=== PATIENT | male | born 1950 | race Caucasian/White ===

== ENCOUNTER → 2023-11-24 08:32 | Outpatient (REF) | payer MEDICARE, SELFPAY | LOC: DHCBC MAIN 08:32 | PROVIDERS: ATTENDING PHYSICIAN Internal Medicine Cardiovascular Disease; FAMILY PHYSICIAN Family Medicine | DX: I35.0 Nonrheumatic aortic (valve) stenosis (principal); I35.1 Nonrheumatic aortic (valve) insufficiency; I07.1 Rheumatic tricuspid insufficiency | CPT/HCPCS: 93306 ==

== ENCOUNTER → 2024-06-19 08:02 | Outpatient (REF) | payer MEDICARE, SELFPAY ==
[2024-06-19 10:07] LABS: ALT (SGPT) 32 U/L (0-50); AST (SGOT) 51 U/L (17-59); Albumin 4.5 g/dl (3.5-5.0); Alkaline Phosphatase 68 U/L (38-126); Blood Urea Nitrogen 23 mg/dl (9-20); Calcium 9.7 mg/dl (8.4-10.2); Carbon Dioxide 26 mmol/L (22-30); Chloride 106 mmol/L (98-107); Glucose 95 mg/dl (70-99); HDL Cholesterol 73 mg/dl; LDL Cholesterol, Calculated 74 mg/dl; Potassium 4.5 mmol/L (3.5-5.1); Sodium 144 mmol/L (135-145); Total Bilirubin 0.6 mg/dl (0.2-1.3); Total Cholesterol 157 mg/dl (50-199); Total Protein 6.9 g/dl (6.3-8.2); Triglyceride 54 mg/dl (10-149); Very Low Density Lipoprotein 10 mg/dl (0-30); eGFR > 60.00
[2024-06-19 10:17] LABS: Vitamin D, 25-OH*** 52.5 ng/mL (30-80)
== END ==
LOC: REG 08:02
PROVIDERS: ATTENDING PHYSICIAN Family Medicine
DX: R73.03 Prediabetes (principal); E78.5 Hyperlipidemia, unspecified; E55.9 Vitamin D deficiency, unspecified
CPT/HCPCS: 36415; 80053; 80061; 82306

== ENCOUNTER → 2024-09-15 07:25 | Outpatient (REF) | payer MEDICARE, SELFPAY ==
[2024-09-15 08:38] LABS: % Basophils 1.1 % (0-2); % Eosinophils 8.4 % (0-6); % Immature Granulocytes 0.2 % (0-0.5); % Lymphocytes 25.7 % (20.5-51.1); % Neutrophils 55.6 % (42.2-75.2); Absolute Basophils 0.1 10^3/uL (0-0.2); Absolute Eosinophils 0.5 10^3/uL (0-0.7); Absolute Lymphocytes 1.4 10^3/uL (1.2-3.4); Absolute Monocytes 0.5 10^3/uL (0.1-0.6); Hematocrit 44.3 % (39.0-52.0); Hemoglobin 14.4 g/dL (13.0-18.0); Mean Corp Hgb Conc. 32.5 g/dL (33.0-37.0); Mean Corpuscular Hgb 30.4 pg (27.0-31.0); Mean Corpuscular Volume 93.5 fL (80.0-94.0); Mean Platelet Volume 10.8 fL (7.4-10.4); Nucleated Red Blood Cells % 0 % (-); Platelet Count 176 10^3/uL (130-400); Red Blood Cell Count 4.74 10^6/uL (4.70-6.10); Red Cell Dist. Width 14.4 % (11.5-14.5); White Blood Cell Count 5.3 10^3/uL (4.8-10.8)
[2024-09-15 09:15] LABS: ALT (SGPT) 30 U/L (0-50); AST (SGOT) 39 U/L (17-59); Albumin 4.8 g/dl (3.5-5.0); Alkaline Phosphatase 53 U/L (38-126); Blood Urea Nitrogen 20 mg/dl (9-20); Calcium 9.9 mg/dl (8.4-10.2); Carbon Dioxide 26 mmol/L (22-30); Chloride 105 mmol/L (98-107); Glucose 100 mg/dl (70-99); HDL Cholesterol 77 mg/dl; LDL Cholesterol, Calculated 69 mg/dl; Potassium 5.2 mmol/L (3.5-5.1); Sodium 144 mmol/L (135-145); Total Bilirubin 0.6 mg/dl (0.2-1.3); Total Cholesterol 158 mg/dl (50-199); Total Protein 7.3 g/dl (6.3-8.2); Triglyceride 60 mg/dl (10-149); Very Low Density Lipoprotein 12 mg/dl (0-30); eGFR > 60.00
[2024-09-15 09:41] LABS: TSH Reflex To Free T4 1.85 uIU/ml (0.47-4.68)
== END ==
LOC: REG 07:25
PROVIDERS: ATTENDING PHYSICIAN Internal Medicine Cardiovascular Disease; FAMILY PHYSICIAN Family Medicine
DX: I35.0 Nonrheumatic aortic (valve) stenosis (principal); E78.5 Hyperlipidemia, unspecified; I10 Essential (primary) hypertension; I07.1 Rheumatic tricuspid insufficiency; I35.1 Nonrheumatic aortic (valve) insufficiency; I47.10 Supraventricular tachycardia, unspecified
CPT/HCPCS: 36415; 80053; 80061; 84443; 85025

== ENCOUNTER → 2024-09-28 08:22 | Outpatient (REF) | payer MEDICARE, SELFPAY | LOC: HWRCS 08:22 | PROVIDERS: ATTENDING PHYSICIAN Internal Medicine Cardiovascular Disease; FAMILY PHYSICIAN Family Medicine | DX: I35.0 Nonrheumatic aortic (valve) stenosis (principal); I35.1 Nonrheumatic aortic (valve) insufficiency; I07.1 Rheumatic tricuspid insufficiency | CPT/HCPCS: 93306 ==

== ENCOUNTER 2024-11-12 06:04 | Day surgery (SDC) | payer MEDICARE, SELFPAY ==
[2024-11-07 12:47] VITALS: BMI 27.3
--- NOTE | 2024-11-07 14:12 | HPS.HSE ---
Family Physician
-
Family Physician: NO INTERVIEW UNKNOWN
Chief Complaint
-
Severe aortic stenosis.
History of Present Illness
The patient is a 74 year old male presenting today for aortic stenosis. He underwent a recent echocardiogram in early September 2024 which revealed his aortic stenosis had progressed from moderate to severe to very clearly severe.
Fortunately, he remains completely asymptomatic despite this diagnosis. At this point, he should be considered for an aortic valve replacement. He is noted to have a 0.3 m/s/year increase in his peak aortic velocity. His mean gradient is also 59
mmHg, a mere 1 mmHg shy of the recommendation for aortic valve replacement. In preparation for an aortic valve replacement, he is advised to proceed with a left and right cardiac catheterization at this time. He denies any current complaints today
such as chest pain, shortness of breath, palpitations, nausea, vomiting, diarrhea, lightheadedness, dizziness, cough, sore throat, or fever.
Medical History
Past Medical History
Past Medical History: Reports Other
Additional Past Medical History:
1. Severe aortic stenosis.
2. Hypertension.
3. Hyperlipidemia.
4. Paroxysmal supraventricular tachycardia.
5. Bilateral carotid artery stenosis, right worse than left.
6. Aortic atherosclerosis.
7. Mild aortic regurgitation.
8. Mild mitral regurgitation.
9. Mild tricuspid regurgitation.
10. Colon polyps.
11. Diverticulosis.
12. Post-polypectomy bleed 2018.
13. GI ulcer with bleed, 1977, likely secondary to H. Pylori.
14. Gout.
15. Herpes simplex virus.
16. Reported MRSA of right knee, approximately 1 year ago, status post treatment.
17. Remote history of infrequent tobacco abuse.
Past Surgical History: Reports Other (Multiple colonoscopies. )
Social History
Tobacco: Former Smoker (He is a former 'social' cigarette smoker who quit tobacco altogether 15-20 years ago. )
Alcohol: Occasional (beer drinking. )
Personal:
Living: Other (He lives in a 2 story home with his . )
Family History
Family History: Not pertinent
Allergies / Home Medications
Allergy/Medication List:
Home medications:
1. Acyclovir 200 mg p.o. three times a day as needed.
2. Allopurinol 300 mg p.o. daily.
3. Aspirin 81 mg p.o. daily.
4. Cholecalciferol 1000 units p.o. every evening.
5. Coleman 3 1 capsule p.o. daily.
6. Rosuvastatin 40 mg p.o. at bedtime.
Allergies: No known allergies.
Review of Systems
-
A 12 point ROS was completed and negative except as noted: Yes
Physical Exam
Vital Signs
Blood pressure 153/80. Heart rate 63. Respirations 18. Pulse ox 100% on room air.
Height 5 feet, 9 inches. Weight 83.8 kg. BMI 27.3.
Physical Exam
General: Well Developed, Well Nourished and No Apparent Distress
HEENT: NormoCephalic, Moist mucous membranes, Atraumatic and PERRLA
Respiratory: Clear
Cardiac: Regular Rhythm and Murmur (2/6, heard best at right upper sternal border. )
GI: Soft, Non Tender and Non Distended
Musculoskeletal: No Edema and Normal Gait & Station
Skin: Warm and Dry
Neuro: AO x 3 and Nonfocal/grossly intact
Laboratory Results
-
DIAGNOSTIC STUDIES as of 11/07/2024: White blood cell count 7.3.Hemoglobin 14.4. Platelet count 173,000. Sodium 139. Potassium 4.7. BUN 18. Creatinine 0.9. Glucose 94. Calcium 10.2. AST 36. ALT 26. Albumin 4.9.
EKG 11/07/2024: Normal sinus rhythm. Left axis deviation. Nonspecific ST abnormality.
Echocardiogram 09/28/2024: Normal left ventricular size and function with no regional wall motion abnormalities. Ejection fraction is 60-65% by visual estimation. Mild concentric left ventricular hypertrophy. Normal right ventricular size and
function. Severe aortic stenosis. Peak/mean gradients across the aortic valve are 82/59mmHg. Using an LVOT diameter of 2.0cm. The aortic valve by the Continuity equation is calculated at 0.9cm2. Mild aortic regurgitation. Mild mitral regurgitation.
Mild tricuspid regurgitation. Estimated pulmonary artery pressure of 33 mmHg, assuming a right atrial pressure of 3 mmHg. Compared to prior from November 24, 2023, aortic stenosis is now severe, previously moderate to severe.
Stress echocardiogram 06/25/2020: Normal treadmill stress echocardiogram at 11 mets. Low risk stress test. Since stress echo April 2017, there is no significant change.
Impression/Plan
-
IMPRESSION/PLAN:
1. Severe aortic stenosis: The patient is in need of a left and right cardiac catheterization with Dr. Eyal Membreno on 11/12/2024. The benefits and risks of the procedure have been explained to the patient. The patient understands these risks and
wishes to proceed. He is aware to continue his baby Aspirin daily, up to and including the morning of his procedure.
[2024-11-12] VITALS (13 sets, daily range): BP systolic 110–165; BP diastolic 59–72; BMI 26.3
[2024-11-12] MEDS: NSS 249 ML IV (07:36)
--- NOTE | 2024-11-12 09:26 | ITS.CL.CATH ---
[employer] Supervisor - Catheterization
Cardiac Catheterization
Procedure Report:
CARDIAC CATHETERIZATION REPORT
Date of Procedure: 11/12/2024
Referring: Eyal Membreno D.O.
Indication: Severe, progressive aortic valve stenosis.
PROCEDURE:
1. Right heart catheterization.
2. Coronary angiography.
A total of 11 minutes of procedural/moderate sedation was utilized. An independent manager of medical was present to assist with and help manage the patient's level of consciousness and physiologic status.
ACCESS:
1. 6 Guyanese right radial artery using a modified Seldinger technique.
2. 5 Guyanese antecubital vein through a previously placed IV.
CATHETERS:
1. 5 Guyanese balloon wedge.
2. 5 Guyanese JR4.
3. 5 Guyanese JL 3.5.
HEMODYNAMIC DATA
Weight (kg): 83.0
AO (s/d/x mmHg): 114/63/88
LV (s/x mmHg): Not obtained.
PCWP (a/v/x mmHg): 1012/7
PA (s/d/x mmHg): 25//15
RV (s/x mmHg): 25/3
RA (a/v/x mmHg): 5/6/
SVC SvO2 (%): 69.3
IVC SvO2 (%): Not obtained.
RA SvO2 (%): Not obtained.
RV SvO2 (%): Not obtained.
PA SvO2 (%): 66.0
SaO2 (%): 92.1
Hbg (g/dL): 14.2
MAHESH
CO (L/min): 4.49
CI (L/min/m2): 2.23
Thermodilution
CO (L/min): Not obtained.
CI (L/min/m2): Not obtained.
TPG (mmHg): 8
PVR (Boyle Units): 1.70
SVR (dynes*seconds*cm^-5): 1514
AVO2 Diff (Volume %): 5.04
AV gradient (x, mmHg): Not obtained.
AV area (cm2): Not obtained.
MV gradient (x, mmHg): Not obtained.
MV area (cm2): Not obtained.
LEFT VENTRICULOGRAPHY: Not performed.
AORTOGRAPHY: Not performed.
CORONARY ANGIOGRAPHY
Dominance: Left.
Left Main: Short, essentially cloacal. There is no coronary artery disease.
LAD: Large size vessel giving rise to 1 significant diagonal. There is a 40% lesion in the mid LAD, immediately after the origin of the diagonal.
Ramus: Congenitally absent.
Circumflex: Large size, dominant vessel giving rise to 2 obtuse marginals. There is no coronary artery disease.
RCA: Small size, nondominant vessel. There is no coronary artery disease.
INTERVENTIONS
None.
Closure Device: Vascular band for the right radial artery, manual pressure for the right antecubital vein.
Radiation dose (mGy): 509.57
DAP (cm2.Gy): 35.1329
Fluoroscopy time (minutes): 3.7
CONCLUSIONS:
1. Left dominant circulation with a cloacal left main coronary artery and a 40% lesion in the mid LAD.
2. Normal filling pressures (PCWP = 7 mmHg at 83.0 kg).
3. Critical aortic valve stenosis by echocardiography.
RECOMMENDATIONS:
1. Expectant management after cardiac catheterization via right radial/antecubital approach.
2. Limited weight bearing on the right wrist for one week.
3. Referral to structural heart team for TAVR/SAVR evaluation.
4. Continue high-dose, high potency statin.
Copy to: Eyal Membreno D.O., Shelton Baugh M.D.
Eyal Membreno, DO, FACC, FACP
--- NOTE | 2024-11-12 13:10 | CONSULT.STRU ---
Addendum entered and electronically signed by EASTON Sandoval 11/12/24 15:28:
Primary Program Management Manager: Eyal Membreno
Original Note:
Consultation
-
Date/Time Consultation Requested: 11/12/2024
Date/Time Consultation Performed: 11/12/2024
Requesting Provider: Eyal Membreno
Performing Provider: EASTON Sandoval
Reason for Consultation: Aortic stenosis/ TAVR evaluation
Patient History
Physicians
Family Physician: Shelton Foster MD
Outpatient Program Management Manager: Previously Bradley Allan, needs new Card.
History of Present Illness
Patient is a very active and healthy appearing male with known history of aortic stenosis. He underwent his cardiac catheterization today as part of the evaluation. His echocardiogram on 09/28/2024 is notable for EF: 60-65%, PG/M/59, TAZ: 0.9,
Mild AI, Mild MR, Mild TR. Cardiac cath today demonstrates Left dominant circulation with a cloacal left main coronary artery and a 40% lesion in the mid LAD. Normal filling pressures (PCWP = 7 mmHg at 83.0 kg). He denies any symptoms of chest pain,
palpitations, VALLE, lightheadedness or fatigue. Denies orthopnea, PND, lower extremity swelling. He does not note any change in his activity level at all.
Reviewed with the patient the pathophysiology of aortic stenosis and the treatment options of TAVR and SAVR. Reviewed the TAVR evaluation process including follow up BMP at end of the week, TAVR CT scan next week, CT surgery consult. Patient is
requesting Dr. Mcleod. Allowed for and answered questions. Provided with copy of the TAVR booklet and contact information. Allowed for and answered questions.
Past Medical History
Past Medical History: Hypercholesterolemia and Valvular Disease (Severe , Mild AI, Mild mR, Mild TR)
Past Surgical History
Past Surgical History: None
Dental History
Regular Dental-Dr. Ciarra Robledo
Family History
Mother: at Age (80yo, CVA)
Father: at Age (55yo, CAD/MT)
Social History
Alcohol: Occasional
Drug: None
Tobacco: Non-Smoker
Personal:
Living: With Spouse
Employment: Retired
Allergies
Allergy/AdvReac Type Severity Reaction Status Date / Time
No Known Allergies Allergy Verified 11/12/24 06:36
Home Medications
�Medication �Instructions �Recorded �Confirmed �Type
allopurinol 300 mg tablet 300 mg PO DAILY 09/06/19 11/12/24 History
cholecalciferol (vitamin D3) 25 2,000 units PO QPM 09/06/19 11/12/24 History
mcg (1,000 unit) tablet
rosuvastatin 40 mg tablet (Crestor) 40 mg PO HS 09/06/19 11/12/24 History
acyclovir 200 mg capsule 200 mg PO TID PRN cold sores 11/05/24 11/05/24 History
aspirin 81 mg capsule 81 mg PO DAILY 11/05/24 11/12/24 History
omega-3 fatty acids 1 cap PO DAILY 11/07/24 11/12/24 History
STS%
STS %: 1.5%
Review of Systems
-
History Source: Patient
General: Reports No Symptoms
HEENT: Reports No Symptoms
Respiratory: Reports No Symptoms; Denies VALLE, Cough or PND
Cardiac: Reports No Symptoms; Denies Chest Pain, Known Vascular Disease or Palpitations
Abdomen/GI: Reports No Symptoms
: Reports No Symptoms
Musculoskeletal: Reports No Symptoms
Skin: Reports No Symptoms
Neurological: Reports No Symptoms
Vascular: Reports No Symptoms
Physical Exam
Vital Signs
Temp 97.4 F 11/12/24 06:44
Temp route: Oral 11/12/24 06:38
Pulse 58 11/12/24 11:35
Resp Rate 18 11/12/24 06:38
Blood pressure 128/70 11/12/24 12:04
Blood pressure extremity used: Left upper arm 11/12/24 12:10
Position: Sitting 11/12/24 12:10
MAP (cuff-Annabella Monitor) 89 11/12/24 12:04
SaO2 99 11/12/24 11:35
Oxygen Mode of Delivery Room air 11/12/24 12:10
Can the patient verbally communicate their pain? Yes 11/12/24 12:10
Actual Weight 83.007 kg 11/12/24 07:02
Body Mass Index (BMI) 26.3 11/12/24 07:02
Labs
11/07/2024
BUN/Creat: 18/0.9
GFR: >60
H/H: 14.4/43.6
WBC: 7.3
Platelets: [id number]
Diagnostic Studies
11/12/2024 Cardiac Catheterization:
HEMODYNAMIC DATA
Weight (kg):83.0
AO (s/d/x mmHg): 114/63/88
LV (s/x mmHg): Not obtained.
PCWP (a/v/x mmHg):
PA (s/d/x mmHg): 17/08/15
RV (s/x mmHg): 15/01
RA (a/v/x mmHg):
SVC SvO2 (%):69.3
IVC SvO2 (%):Not obtained.
RA SvO2 (%):Not obtained.
RV SvO2 (%):Not obtained.
PA SvO2 (%):66.0
SaO2 (%):92.1
Hbg (g/dL):14.2
MAHESH
CO (L/min): 4.49
CI (L/min/m2): 2.23
Thermodilution
CO (L/min):Not obtained.
CI (L/min/m2):Not obtained.
TPG (mmHg): 8
PVR (Boyle Units): 1.70
SVR (dynes*seconds*cm^-5): 1514
AVO2 Diff (Volume %): 5.04
AV gradient (x, mmHg):Not obtained.
AV area (cm2):Not obtained.
MV gradient (x, mmHg):Not obtained.
MV area (cm2):Not obtained.
LEFT VENTRICULOGRAPHY: Not performed.
AORTOGRAPHY:Not performed.
CORONARY ANGIOGRAPHY
Dominance: Left.
Left Main: Short, essentially cloacal. There is no coronary artery disease.
LAD: Large size vessel giving rise to 1 significant diagonal. There is a 40% lesion in the mid LAD, immediately after the origin of the diagonal.
Ramus:Congenitally absent.
Circumflex: Large size, dominant vessel giving rise to 2 obtuse marginals. There is no coronary artery disease.
RCA: Small size, nondominant vessel. There is no coronary artery disease.
INTERVENTIONS
None.
Closure Device: Vascular band for the right radial artery, manual pressure for the right antecubital vein.
Radiation dose (mGy): 509.57
DAP (cm2.Gy): 35.1329
Fluoroscopy time (minutes):3.7
CONCLUSIONS:
1. Left dominant circulation with a cloacal left main coronary artery and a 40% lesion in the mid LAD.
2. Normal filling pressures (PCWP = 7 mmHg at 83.0 kg).
3. Critical aortic valve stenosis by echocardiography.
RECOMMENDATIONS:
1. Expectant management after cardiac catheterization via right radial/antecubital approach.
2. Limited weight bearing on the right wrist for one week.
3. Referral to structural heart team for TAVR/SAVR evaluation.
4. Continue high-dose, high potency statin.
09/28/2024 Echocardiogram:
CONCLUSIONS
Normal LV size and function with no regional wall motion abnormalities.
LVEF is 60-65% by visual estimation.
Mild concentric LVH.
Normal right ventricular size and function.
Severe aortic stenosis.
Mild aortic regurgitation.
Estimated pulmonary artery pressure of 33 mmHg. Assuming a right atrial
pressure of 3 mmHg.
Compared to prior from November 24, 2023, aortic stenosis is now severe,
previously moderate to severe.
Indications:
Nonrheumatic aortic (valve) stenosis
Rhythm: Sinus
Portable Study: No
Technical Quality: Fair
Contrast: None
BP: 128 / 76
PROCEDURE
A complete Transthoracic Echocardiogram was performed utilizing two-dimensional
evaluation with color flow and spectral Doppler analysis.
FINDINGS
Left Ventricle
Normal left ventricular chamber size. Normal left ventricular systolic
function. Normal regional wall motion. Mild concentric left ventricular
hypertrophy. Left ventricular ejection fraction is 60-65%. Diastolic function
indeterminate.
Right Ventricle
Normal right ventricular size and function.
Left Atrium
Indexed LA volume is within normal range (15-34 mL/m2).
Right Atrium
Normal right atrium.
Mitral Valve
Thickened mitral valve leaflets. Mild mitral regurgitation.
Aortic Valve
Trileaflet aortic valve. Calcified aortic valve. Peak/mean gradients across the
aortic valve are 82/59mmHg. Using an LVOT diameter of 2.0cm. The aortic valve
by the Continuity equation is calculated at 0.9cm2. Severe aortic stenosis.
Mild aortic regurgitation.
Tricuspid Valve
Tricuspid valve opens normally. Mild tricuspid regurgitation. Estimated
pulmonary artery pressure of 33 mmHg. Assuming a right atrial pressure of 3
mmHg.
Pulmonic Valve
Pulmonic valve opens normally. Trace pulmonic regurgitation.
Pericardium\\Pleura
Normal pericardium without effusion.
Aorta
The aortic root is of normal size.
Other Finding
The IVC is of normal size and demonstrates normal respiratory variation.
Interatrial septum is intact with no evidence of shunting by color flow
Doppler.
MEASUREMENTS (Male / Female) Normal Values
2D ECHO
LV Diastolic Diameter PLAX 5.0 cm 4.2 - 5.9 / 3.9 - 5.3 cm
LV Systolic Diameter PLAX 3.2 cm
IVS Diastolic Thickness 1.1 cm 0.6 - 1.0 / 0.6 - 0.9 cm
LVPW Diastolic Thickness 1.1 cm 0.6 - 1.0 / 0.6 - 0.9 cm
LV Relative Wall Thickness 0.4
LVOT Diameter 2.0 cm
LV Ejection Fraction MOD BP 62.0 % >= 55 %
LV Stroke Volume MOD BP 75.7 cm3
LV Cardiac Index MOD BP 2690.0 cm3/min
LV Stroke Volume MOD 4C 67.1 cm3
LV Stroke Volume 4C AL 73.2 cm3
LV Stroke Volume MOD 2C 69.2 cm3
LV Stroke Volume 2C AL 71.7 cm3
LA Area 4C View 18.4 cm2 <= 20 cm2
LA Length 4C 5.4 cm
LA Volume 51.6 cm3 18 - 58 / 22 - 52 cm3
LA Volume Index 28.8 cm3/m2 16 - 34 cm3/m2
Aorta at Sinotubular Diameter 2.7 cm
Ascending Aorta Diameter 3.4 cm
Aorta at Sinuses Diameter 2.8 cm
M-MODE
TAPSE 2.2 cm
DOPPLER
AV Peak Velocity 453.0 cm/s
AV Peak Gradient 82.1 mmHg
AV Mean Gradient 59.0 mmHg
AV Velocity Time Integral 102.8 cm
AI Peak Velocity 249.0 cm/s
AI Peak Gradient 24.8 mmHg
AI Pressure Half Time 535.0 ms
LVOT Peak Velocity 113.0 cm/s
LVOT Peak Gradient 5.1 mmHg
LVOT Velocity Time Integral 28.4 cm
LVOT Stroke Volume 89.2 cm3
LVOT Stroke Volume Index 43.4 ml/m2 empty
LVOT Cardiac Index 3170.5 cm3/min\\m2
AV Area Cont Eq vti 0.9 cm2
AV Area Cont Eq pk 0.8 cm2
MV Area PHT 2.1 cm2
Mitral E Point Velocity 99.0 cm/s
Mitral A Point Velocity 70.7 cm/s
Mitral E to A Ratio 1.4
LV E' Lateral Velocity 10.4 cm/s
Mitral E to LV E' Lateral Ratio 9.5
LV E' Septal Velocity 7.6 cm/s
Mitral E to LV E' Septal Ratio 13.0
TR Peak Velocity 270.0 cm/s
TR Peak Gradient 29.2 mmHg
Exam
General: Well Developed, Well Nourished, No Apparent Distress and Comfortable
HEENT: Normocephalic, PERRLA and EOMI
Neck: Trachea Midline; Negative JVD
Respiratory: Clear; Negative Wheezes, Crackles or Rhonchi
Cardiac: S1/S2, Regular Rhythm and Murmur (Grade II/ systolic murmur)
GI: Soft, Non Tender, Non Distended and Normal Bowel Sounds
Rectal: Deferred by Provider
Skin: Warm and Dry
Neuro: AO x 3 and Nonfocal/Grossly Intact
Extremities: Pulses (+2 dp pulses bilaterally); Negative Lower Level Edema
Psych: Calm
Assessment / Plan
-
Procedure Type:�Isolated AVR
Perioperative Outcome Estimate %
Operative Mortality 1.5%
Morbidity & Mortality 8.39%
Stroke 1.52%
Renal Failure 0.912%
Reoperation 4.4%
Prolonged Ventilation 3.51%
Deep Sternal Wound Infection 0.044%
Long Hospital Stay (>14 days) 2.82%
Short Hospital Stay (<6 days)* 56.9%
Assessment:
Severe/Critical Aortic Stenosi
Plan:
Follow up BMP on 11/16/[address] TAVR scan on 11/20/[address] surgery consult with Dr. Mcleod 12/10/2024
Heart Team discussion
Dental clearance - Dr. Robledo (appt 11/13/2024)
Continue Aspirin 81mg daily
Data Reviewed
-
EKG: Report Reviewed by me
Concrete Pointer: Report Reviewed by me and Discussed with Physician
Echo: Report Reviewed by me and Discussed with Physician
Labs: Labs Reviewed by me
Old Records: Reviewed
Total Time Spent with Patient (in minutes): 40
== END 2024-11-12 12:10 | disposition home or self-care (01) ==
LOC: CATH 06:04
PROVIDERS: ATTENDING PHYSICIAN Internal Medicine Cardiovascular Disease; FAMILY PHYSICIAN Family Medicine
DX: I08.2 Rheumatic disorders of both aortic and tricuspid valves (principal); I10 Essential (primary) hypertension; E78.00 Pure hypercholesterolemia, unspecified; Z87.891 Personal history of nicotine dependence; Z82.49 Family history of ischemic heart disease and other diseases of the circulatory system; Z82.3 Family history of stroke; Z79.82 Long term (current) use of aspirin
CPT/HCPCS: 99152; C1894; 93456; Q9967

== ENCOUNTER → 2024-11-16 10:59 | Outpatient (REF) | payer MEDICARE, SELFPAY ==
[2024-11-16 12:33] LABS: Blood Urea Nitrogen 19 mg/dl (9-20); Calcium 9.8 mg/dl (8.4-10.2); Carbon Dioxide 26 mmol/L (22-30); Chloride 103 mmol/L (98-107); Glucose 90 mg/dl (70-99); Potassium 4.4 mmol/L (3.5-5.1); Sodium 139 mmol/L (135-145); eGFR > 60.00
== END ==
LOC: REG 10:59
PROVIDERS: ATTENDING PHYSICIAN Nurse Practitioner Adult Health; FAMILY PHYSICIAN Family Medicine
DX: I35.0 Nonrheumatic aortic (valve) stenosis (principal)
CPT/HCPCS: 36415; 80048

== ENCOUNTER → 2024-11-20 09:15 | Outpatient (REF) | payer MEDICARE, SELFPAY | LOC: RAD 09:15 | PROVIDERS: ATTENDING PHYSICIAN Nurse Practitioner Adult Health; FAMILY PHYSICIAN Family Medicine | DX: I35.0 Nonrheumatic aortic (valve) stenosis (principal) | CPT/HCPCS: 74174; 75572; Q9967 ==

== ENCOUNTER 2024-12-20 06:15 | Inpatient (IN) | payer MEDICARE, SELFPAY ==
[2024-12-17 12:19] VITALS: BMI 27.9
[2024-12-17 12:47] LABS: Urine Albumin Negative (Neg - Trace); Urine Bilirubin Negative (Negative); Urine Character Clear (Clear); Urine Color Yellow; Urine Glucose Negative (Negative); Urine Ketone Negative (Negative); Urine Leukocyte Negative (Negative); Urine Nitrite Negative (Negative); Urine Occult Blood Negative (Negative); Urine Urobilinogen Negative (Neg - 1+)
[2024-12-17 12:47] LABS: % Basophils 0.9 % (0-2); % Eosinophils 3.9 % (0-6); % Immature Granulocytes 0.1 % (0-0.5); % Lymphocytes 21.8 % (20.5-51.1); % Monocytes 5.5 % (1.7-9.3); % Neutrophils 67.8 % (42.2-75.2); Absolute Basophils 0.1 10^3/uL (0-0.2); Absolute Eosinophils 0.3 10^3/uL (0-0.7); Absolute Lymphocytes 1.5 10^3/uL (1.2-3.4); Absolute Monocytes 0.4 10^3/uL (0.1-0.6); Absolute Neutrophils 4.6 10^3/uL (1.4-6.5); Hematocrit 43.6 % (39.0-52.0); Hemoglobin 14.4 g/dL (13.0-18.0); Mean Corpuscular Hgb 30.7 pg (27.0-31.0); Mean Platelet Volume 10.8 fL (7.4-10.4); Nucleated Red Blood Cells % 0 % (-); Platelet Count 158 10^3/uL (130-400); Red Blood Cell Count 4.69 10^6/uL (4.70-6.10); Red Cell Dist. Width 13.9 % (11.5-14.5); White Blood Cell Count 6.7 10^3/uL (4.8-10.8)
[2024-12-17 12:56] LABS: INR 0.94; PT 12.9 Sec (11.4-14.6)
[2024-12-17 12:57] LABS: APTT 27.5 Sec (23.4-35.0)
[2024-12-17 13:03] LABS: ALT (SGPT) 33 U/L (0-50); AST (SGOT) 41 U/L (17-59); Alkaline Phosphatase 63 U/L (38-126); Blood Urea Nitrogen 14 mg/dl (9-20); Calcium 9.8 mg/dl (8.4-10.2); Carbon Dioxide 27 mmol/L (22-30); Chloride 105 mmol/L (98-107); Direct Bilirubin 0.2 mg/dl (0.0-0.4); Estimated Creatinine Clearance 68 ml/min; Glucose 93 mg/dl (70-99); Potassium 4.6 mmol/L (3.5-5.1); Sodium 140 mmol/L (135-145); Total Protein 7.2 g/dl (6.3-8.2); eGFR > 60.00
[2024-12-17 13:10] LABS: NT-proBNP 852 pg/ml
--- NOTE | 2024-12-17 13:50 | CM ---
Met with Mr. Castillo in [facility]. He states prior to admission he resides with his spouse in a two story home with one step to enter. He states he has a full flight of steps to get to bedroom/full bathroom. He states he has a powder room on the first
floor. He states prior to admission he was independent with ambulation and adls. He states he does not have any DME in the home. He states he has a prescription plan. He states his spouse will be home to assist in his care if needed. The
discharge plan is to return home with his spouse and a home visit by the Transitional Care Nurse when medically stable.
We reviewed pre-op and post-op routines. We reviewed the shower instructions. He has the soap, written instructions and the TAVR Educational Booklet. We also reviewed restrictions including driving and lifting restrictions. We also discussed a
home visit by the Transitional Care Nurse. He is agreeable to a home visit. The plan is for TAVR on , 12/20.25.
[2024-12-18 09:14] LABS: Glycohemoglobin (HgbA1c) 5.5 % (4.0-5.6)
[2024-12-20] VITALS (18 sets, daily range): BP systolic 102–141; BP diastolic 61–79; BMI 27.8
--- NOTE | 2024-12-20 06:31 | W.CVOR.SURPR ---
CVOR Surgeon Immed Pre Op
-
I have examined this patient prior to performance of the scheduled procedure.
The patient's condition is unchanged from the time of the dictated/written History and
Physical and the patient is able to undergo the scheduled procedure.
TF TAVR
[2024-12-20] MEDS: ANCEF 10 IV ×2 (07:00→12:51)
[2024-12-20 08:05] LABS: ACT-LR - POC 236 Seconds (116-155)
[2024-12-20 08:13] LABS: ACT-LR - POC 253 Seconds (116-155)
--- NOTE | 2024-12-20 08:24 | W.PN.CT.SURG ---
CT Surgery Operative Note
-
OPERATIVE REPORT
Preoperative Diagnosis: Severe aortic valve stenosis, symptomatic
Postoperative Diagnosis: Same
Procedure(s) Performed: Right trans femoral TAVR with a 26 mm, nominal Gonzalez TAVR valve with pre-TAVR balloon valvuloplasty
Date of Procedure: 12/20/2024
Comorbidities:
1. Severe aortic stenosis, symptomatic
2. Acute on chronic systolic and diastolic congestive heart failure with LVEDP of 25 mmHg pre-TAVR indicating volume overload
3. Hypertension
4. Hyperlipidemia
5. PSVT
6. Mild aortic valve insufficiency
7. Mild tricuspid valve insufficiency
8. Mild coronary artery disease
9. GI bleed/PUD
Cardiac Surgeon: Stevie Mcleod MD, MS
Transition Assistant: Eyal Membreno MD
Anesthesia: Conscious Sedation and Local Analgesia
EBL: 100cc
Products: none
Implant: 26 mm Gonzalez TAVR valve, nominal, SN: [id number]
Indication(s) for Procedures: 74-year-old male with symptomatic severe aortic stenosis. CT-TAVR protocol revealed acceptable anatomy for TAVR access and implantation.
Start time: 0737hrs
Deployment time: 0807hrs
End time: 0817hrs
Radiation Dose (mGy): 350.15
DAP (cm2.Gy): 38.2986
Fluoroscopy time (minutes): 10
Contrast volume (ml): 68
TAVR gradient (mmHg): 6mmHg
Heparin Dose: 9000units
Protamine Dose: 0mg
Final Valve Positionin/10
LVEDP: 25 mmHg
Findings: Preoperative LVEF was 60% and was 60% following TAVR without inotropic support. Function was overall normal without regional wall motion abnormalities or dyskinesia. The aortic valve was well seated without detectable PVL and mean gradient
across the new valve was 6mmHg. following the pulm and the valve, I did not require any pacing and returned to sinus while on the section laborer table. There was successful placement of 26 mm, nominal TAVR valve without acute complications. LVEDP
pre-TAVR deployment was 25 mmHg. Patient will be receiving Lasix in CVICU for volume overload.
Access:
1. Device -right common femoral artery, perclose x 2
2. Pigtail -left common femoral artery [+ 6Fr angioseal]
3. Transvenous Pacer -left common femoral vein
Description of Procedure: The patient was taken to the section laborer. Their identity and procedure to be performed were verified and they were positioned supine on the section laborer table. Induction via conscious sedation. The patient was then prepped and
draped from chin to thigh in a sterile fashion. A preoperative time-out was performed with all members of the team present. Arterial and venous access was performed using fluoroscopy and ultrasound guidance with micropuncture and Seldinger
technique. Two perclose devices were used on the device side followed by access to the aorta with a stiff wire to facilitate E-sheath placement. Heparin was given. A stiff straight wire and AL-1 catheter was used to cross the aortic valve. An LVEDP
was measured here. The stiff wire was exchanged for an extra stiff coiled tip wire. At this point we plan to perform a pre-TAVR balloon valvuloplasty. The balloon was placed across the valve, under rapid pacing at 180 bpm, balloon was inflated
and then deflated. There is rapid return of vitals. The valve was prepped and mounted on to the device carrier. An ACT of >250 was achieved. We verified x 3 that the valve was mounted in the correct orientation with the skirt of the valve directed
toward the tip of the device carrier. We advanced the device into the descending thoracic aorta where the valve was them mounted onto the balloon under fluoroscopy. The device was flexed and advanced over the arch into the root and positioned across
the aortic valve. Contrast fluoroscopy was used to visualize the prosthesis across the valve and to guide positioning. A pigtail catheter in the RCC as used as a guide. We aimed to have the bottom of the device marker at the annular hinge point. The
device sheath was pulled back. We performed a quick pre-deployment time out. The pacer was turned on and had capture. Blood pressure fell accordingly, angiography was done to verify the intended final placement and the valve was deployed with 5
seconds of rapid pacing to nominal volume. The balloon was deflated and the pacer was turned off. We had recovery of vitals. The device carrier was unflexed and positioned back in the descending thoracic aorta. A transthoracic echocardiogram was
performed. The device was removed from the E-Sheath maintaining wire access followed by removal of the E-sheath as we cinched down the perclose devices. There was acceptable hemostasis. The pigtail was withdrawn into the descending/abdominal and
completion aortogram with runoff run-off angiography was performed. There was no stenosis or dissection of right iliofemoral systems. There was acceptable hemostasis of bilateral groins and manual pressure was held following wire removal. Low dose
protamine was administered after checking another ACT.
All instrument, sponge, and needle counts were confirmed to be correct x 2 at the end of the operation. The patient was transferred to the cardiac intensive care unit in stable condition.
I, Dr. Stevie Mcleod, was present, scrubbed for, and performed all critical elements of this procedure.
Stevie Mcleod MD
Cardiothoracic Surgeon
[facility]
This operative dictation was created using the [employer] dictation system. Please excuse any grammatical, typographical, or 'sound alike' errors
--- NOTE | 2024-12-20 08:25 | ITS.CL.TAVR ---
Drop Forger Helper - TAVR Report
TAVR PRocedure
Procedure Report:
TRANSCATHETER AORTIC VALVE REPLACEMENT REPORT
Date: 12/20/2024
Referring physician: Eyal Membreno D.O.
Preop diagnosis: Severe calcified aortic valve stenosis.
Postop diagnosis: Severe calcified aortic valve stenosis, acute on chronic heart failure with preserved ejection fraction.
Procedure: Aortic balloon valvuloplasty using a #20 True valvuloplasty balloon, transcatheter aortic valve replacement (TAVR) using a # 26 Gonzalez IRON S3 Ultra.
Operators: Eyal Membreno DO, Anthony Tran, M.D.
Findings: Severely calcified and stenotic aortic valve, acute on chronic HFpEF.
Anesthesia: Conscious sedation was provided by the anesthesia staff.
Estimated blood loss: Negligible.
Complications: None.
Condition: Stable
Procedure:
The patient was brought to the cardiac laborer petroleum refinery after consent and was prepped and draped in standard sterile fashion. Conscious sedation was provided by the anesthesia staff. After a 'Time Out,' bilateral common femoral arteries and the left
common vein were access using a modified Seldinger technique with a micropuncture kit under ultrasound guidance. A 6 Yemeni sheath was placed in the left femoral vein. Angiography performed through the micropuncture sheath confirmed satisfactory
arterial placement in the left common femoral artery. The micropuncture sheath was replaced with a 6Fr sheath in the left ECOMMERCE MANAGER. Angiography through the micropuncture kit confirmed satisfactory arterial placement in the right common femoral artery.
The right [employer] MANAGER was dilated with an 8FR dilator and preclosed with two Perc-Close devices. An 8Fr sheath was placed in the RCFA. A temporary pacing wire was advanced through the left femoral vein and into the right ventricle. The pacemaker
demonstrated good capture and was set to back up. A 5Fr pigtail catheter was advanced through the left femoral sheath and seated in the right coronary cusp. Angiography confirmed co-planar angles.
An AL-1 catheter was advanced through the 8Fr sheath, the J wire was exchanged for an Amplatz Superstiff wire and the catheter and the 8 Fr sheath was removed. The 14 Fr Gonzalez E-sheath was inserted over the wire and into the descending aorta.
Heparin 7000 units was given. The IRON S3 was prepared on the back table. Orientation was confirmed by both physicians. The AL-1 catheter was re-advanced through the E-sheath to the level of the ascending aorta. The Superstiff wire was removed
and a soft tip straight wire was advanced through the AL-1. The straight tip wire was used to cross the aortic valve and the catheter was advanced into the left ventricle. The straight wire was removed and an Amplatz Extrastiff wire with curved
proximal end was advanced through the catheter and into the left ventricle. The wire was seated in the apex and the catheter was removed. ACT was checked and confirmed to be > 250 seconds.
A #20 True valvuloplasty balloon was advanced over the Extra-stiff wire and into the aortic annulus. Valvuloplasty was performed under rapid pacing with good balloon expansion. The valvuloplasty balloon was removed.
The valve was advanced over the Extrastiff wire and into the descending aorta. The balloon was withdrawn and the valve was mounted on the balloon. The valve was advanced over the aortic arch and into the aortic valve annulus. The pusher device
was withdrawn to allow for balloon expansion. Low volume aortography confirmed good position of the valve. The valve was deployed during rapid ventricular pacing. Echocardiography and aortography confirmed a good result with no aortic valve
insufficiency and a 6 mmHg mean gradient. The valve deployment system was removed. The Gonzalez E sheath was then removed and hemostasis obtained with the two Perc-Close sutures. Final angiography demonstrated no evidence of ileofemoral
dissection/perforation and good runoff below the common femoral artery. The pacemaker and the pigtail catheter were removed. The left femoral artery sheath was removed using a 6 Yemeni Angio-Seal. The left femoral venous sheath was removed and
manual pressure was applied with excellent hemostasis.
Radiation
Dose (mGy): 350.15
DAP (cm2.Gy): 38.2986
Fluoroscopy time (minutes): 10.0
TAVR Echo Gradient (mmHg): 6
LV (s/x, mmHg): 172/24
TAVR Cath Gradient (mmHg): Not obtained.
Conclusions:
1. Successful placement of # 26 Iron S3 Ultra aortic valve via right transfemoral approach with no acute complications.
2. Acute on chronic heart failure with elevated filling pressures (LVEDP = 24 at 84.0 kg).
Eyal Membreno DO, FACC, FACP
Copy to: Eyal Membreno D.O., Shelton Baugh M.D.
--- NOTE | 2024-12-20 08:42 | W.PN.UPDATE ---
Update Note
Progress Note Update
Reviewed Mr. Castillo with the heart team in the PreTAVR SDM meeting andconfirmed a 26mm S3 via right transfemoral access. Pt will resume aspirin post TAVR. LVEDP 25mmHg. #26mm S3 (serial# [id number]) successfully depolyed via right transfemoral access.
Post implant MG 6 mmHg.
[2024-12-20] MEDS: LASIX 40 MG IV (09:23)
--- NOTE | 2024-12-20 13:32 | CM ---
Patient in OR today for planned CT procedure, TAVR.
Reviewed initial assessment. Pt. comes from 2 story home w/ spouse. He is functionally indep. prior to admission w/ ADLs, mobility.
Anticipated DC plan is for home w/ CT Transitional Care RN.
CM to follow.
[2024-12-20] MEDS: ANCEF 5 IV (15:53)
[2024-12-20] MEDS: VITAMIN D3 (cholecalciferol) 25 MCG PO (18:00)
--- NOTE | 2024-12-20 18:30 | PTCARENOTE ---
Pt received from recovery area post TAVR. Pt in fine spirits, he denies any discomfort. Bilateral groin sites with scant amount of drainage throughout the afternoon, no sign of bleeding or hematoma. Pt OOB independently, voiding without difficulty.
Telemetry shows sinus rhythm with rare run of bigeminy. Neuro assessment at pt's baseline. Plan for ECHO on 12/21.
[2024-12-20] MEDS: CRESTOR 40 MG PO (20:33)
[2024-12-21] VITALS (7 sets, daily range): BP systolic 114–148; BP diastolic 61–72; PULSE 72; O2SAT 96–99; BMI 26.7
[2024-12-21 04:43] LABS: Hematocrit 41.7 % (39.0-52.0); Hemoglobin 14.2 g/dL (13.0-18.0); Mean Corp Hgb Conc. 34.1 g/dL (33.0-37.0); Mean Corpuscular Hgb 30.9 pg (27.0-31.0); Mean Corpuscular Volume 90.7 fL (80.0-94.0); Platelet Count 131 10^3/uL (130-400); Red Cell Dist. Width 13.9 % (11.5-14.5); White Blood Cell Count 9.9 10^3/uL (4.8-10.8)
--- NOTE | 2024-12-21 04:58 | PTCARENOTE ---
Pt with NSR on monitor. Denies pain or any discomfort. B/L groin with 4x4 with small drainage. Independent in the room
[2024-12-21 04:59] LABS: Blood Urea Nitrogen 22 mg/dl (9-20); Carbon Dioxide 22 mmol/L (22-30); Chloride 101 mmol/L (98-107); Estimated Creatinine Clearance 68 ml/min; Glucose 110 mg/dl (70-99); Potassium 4.3 mmol/L (3.5-5.1); Sodium 135 mmol/L (135-145); eGFR > 60.00
--- NOTE | 2024-12-21 06:31 | W.PN.CT ---
Today's Communication / Plan
-
-pod #1
-no issues overnight
-nsr 60-70s. No thea or pauses
-preop 1st degree AVB. am ECG without change
-Echo today
-current meds (ASA, Crestor, vit D)
-encourage IS, OOB
-possible d/c home
Assessment / Plan
-
- Sever symptomatic - s/p Right trans femoral TAVR with a 26 mm, nominal Gonzalez TAVR valve with pre-TAVR balloon valvuloplasty on 12/20/24, pod #1
- Intraop TTE: LVEF 60% pre and post TAVR without inotropic support, no wma. The aortic valve was well seated without detectable PVL and mean gradient across the new valve was 6mmHg.
- Acute on chronic systolic and diastolic congestive heart failure with LVEDP of 25 mmHg pre-TAVR indicating volume overload- got 40 iv Lasix (UO 1950+)
- Hypertension
- Hyperlipidemia
- PSVT
- PVCs
- Mild aortic valve insufficiency
- Mild tricuspid valve insufficiency
- Mild coronary artery disease
- GI bleed/PUD
- Pre-existing 1st degree AVB
Discussed patient care with: Nursing and Care Team
Subjective
Procedure
- s/p Right trans femoral TAVR with a 26 mm, nominal Gonzalez TAVR valve with pre-TAVR balloon valvuloplasty on 12/20/24
-
Date of Service: December 21, 2024
Objective Data
-
PT 12.9 Sec (11.4-14.6) 12/17/24 12:29
INR 0.94 12/17/24 12:29
APTT 27.5 Sec (23.4-35.0) 12/17/24 12:29
Vital Signs
Vital Signs
Temp Pulse Resp BP Pulse Ox
98.5 F 67 17 113/68 94
12/20/24 22:48 12/20/24 22:48 12/20/24 22:48 12/20/24 22:48 12/20/24 22:48
CT Intake/Output/Weight
12/20/24 12/20/24 12/21/24
06:59 18:59 06:59
Intake Total 1500 / 1500
Output Total 1950 / 1949
Balance -450 / -450
SaO2: 94
Physical Exam
-
General: Awake and AOx3
Cardiovascular: Regular rate & rhythm, No Murmurs and No Rub
Respiratory: Clear
Incision: Other (groins are cdi, soft, nontender, nondistended, no hematoma b/l)
Extremities: No Edema (2+ DPs b/l)
Abdomen: soft, nontender, nondistended, + bowel sounds
Data Reviewed
-
Lab Results: Results Reviewed
Medications: Active Meds Reviewed
Chest X-Ray: Report Reviewed and Image Reviewed
ECG: Report Reviewed and Image Reviewed
--- NOTE | 2024-12-21 07:33 | W.PN.ANS.POP ---
Anesthesia Post Operative
- Anesthesia Post Op Note
Vital Signs Stable-See Nursing Note: Yes
Airway Patent: Yes
Adequate Pain Control: Yes
Change in Mental Status: No
Current Postoperative Nausea & Vomiting: No
Anesthesia Complications: No
General Anesthetic Recall: No
Unplanned Admission: No
Post Op Hydration Adequate: Yes
--- NOTE | 2024-12-21 07:33 | W.PN.CD ---
Today's Communication / Plan
-
Echocardiogram pending.
Discharge planning.
Impression / Plan
-
Impression/Plan: 74 y/o male with HTN, HLD, CAD and severe admitted for elective TAVR.
#Severe
-Chronic, progressive.
-S/P #26 Gonzalez IRON S3 TAVR via right common femoral artery approach without acute complication.
-Telemetry stable.
-Anti-thrombotic therapy with aspirin.
-Post TAVR echo pending.
#HFpEF
-Acute on chronic.
-Responded well to IV diuresis.
-Monitor with resolution of obstructive .
#CAD
-Chronic, stable.
-No angina.
-Continue aspirin, statin.
#HTN
-Chronic, stable.
#HLD
-Chronic, stable.
-Resume rosuvastatin.
#PPX
-SCD's for DVT/VTE.
-No role for PPI.
#Dispo
-IVU status.
-Full code.
-Discharge planning.
Subjective/Interval History:
TAVR yesterday.
Feels well.
DATA:
TAVR, 12/20/2024:
Conclusions:
1. Successful placement of # 26 Iron S3 Ultra aortic valve via right transfemoral approach with no acute complications.
2. Acute on chronic heart failure with elevated filling pressures (LVEDP = 24 at 84.0 kg).
Intraprocedural TTE, 12/20/2024:
CONCLUSIONS
Limited echo images obtained immediately after TAVR deployment
Normal left ventricular systolic function.
26 mm Gonzalez Iron transcatheter aortic valve replacement.. Peak gradient 12
mmHg mean gradient 6 mmHg. No aortic regurgitation.
No significant pericardial effusion
Physical Exam
Vital Signs/Labs
Vital Signs
Temp Pulse Resp BP Pulse Ox
36.7 C 77 14 114/69 94
12/21/24 03:46 12/21/24 04:30 12/21/24 03:46 12/21/24 03:49 12/21/24 03:46
12/19/24 12/20/24 12/21/24
11:59 11:59 11:59
Actual Weight 83.007 kg 79.5 kg
12/21/24 03:56
12/21/24 03:56
PT 12.9 Sec (11.4-14.6) 12/17/24 12:29
INR 0.94 12/17/24 12:29
APTT 27.5 Sec (23.4-35.0) 12/17/24 12:29
12/17/24
12:29
Hxy-X-Uwztyaostdz Pept 852
Physical Exam
Constitutional: No acute distress and Comfortable
EENT: Anicteric and Moist mucous membranes
Cardiovascular: Rhythm & rate is regular, Pedal edema is absent, JVD pressure is normal, S1S2 is normal and Murmur/rub/gallop absent
Respiratory: Respiratory effort normal, Lungs clear to auscul., Wheeze Absent, Crackles Absent and Rhonchi Absent
GI: Soft, Distention absent, Flat, Non tender and Normal bowel sounds
Neuro/Psych: AO x 3
Other: Cath Site (Bilateral femoral access sites are C/D/I.)
Data Reviewed
-
Date of Service: December 21, 2024
Medical Decision Making: Reviewed Test Results, Independent Historian Assessment, Test Interpretation and Review of Case with other Provider
EKG: Tracing Personally Visualized and interpreted and Report Reviewed by me
Echo: Tracing Personally Visualized and interpreted and Report Reviewed by me
X-Ray/CT/US/MRI/NUC/PET: Image Personally Visualized and interpreted and Report Reviewed by me
Medical Tests (PFT, Pathology etc): Image Personally Visualized and interpreted, Report Reviewed by me and Discussed with Patient
Labs: Labs Reviewed by me
Old Records: Reviewed
[2024-12-21] MEDS: ASPIR LOW (ENTERIC COATED) 81 MG PO (08:19)
--- NOTE | 2024-12-21 09:51 | W.DCSUMMARY ---
Discharge Summary
Discharge Data
Date of Admission: 12/20/24
Date of Discharge: 12/21/24
Total time spent discharging patient (in min): 40
-
Pending Results: No
Hospital Course
Primary care physician:
Dr. Baugh
Outpatient chemical educator:
Dr. Membreno
Inpatient consultants:
CBC
Procedures:
1. Right trans femoral TAVR with a 26 mm, nominal Gonzalez TAVR valve with pre-TAVR balloon valvuloplasty on 12/20/24
Primary Diagnosis:
1. Severe aortic stenosis
Secondary Diagnoses:
1. Heart failure with preserved EF
2. Coronary artery disease
3. Hypertension
4. Hyperlipidemia
HPI: 74-year-old male with past medical history of severe aortic stenosis presented electively on 12/20 for a transcatheter aortic valve replacement with Dr. Mcleod.
Hospital course:
Patient was electively admitted on 12/21 for a transcatheter aortic valve replacement with Dr. Mcleod. There were no intra-op events and patient went to laborer concrete paving recovery. He was given iv lasix for an elevated LVEDP. He was sent to IVU for the
remainder of their recovery. On 12/21, POD #1, B/L groins remained stable. Repeat TTE showed a LVEF 60-65%, Well-seated TAVR valve with mildly elevated gradients (28/15 mmHg) and no AR. He was deemed stable for discharge.
Home medication changes:
See below
Discharge Plan
-
Patient Disposition: Home (Routine Discharge)
Discharge Diagnosis/Procedures: TF-TAVR
Condition: Good
Diet: Low Cholesterol and 2 Gram Sodium
Activity: As tolerated
Driving Restrictions: No driving for 1 week
Bathing Restrictions: OK to Shower
Others Tests: 30 Day follow up echocardiogram has been scheduled for you at [facility] on 01/18/2025 at 11:20am.
Other Services: Cardiac Rehab
Wound Care: Please do not apply lotions. creams or powders to groin areas. Monitor for increased bleeding, swelling, pain or drainage. Notify your doctor if any occur.
Specialty Instructions: Weigh Daily- Call MD for wt gain/loss 3 lbs overnight/5 lbs in 1 week
Stand Alone Forms: DC Inst - TransFemoral (TAVR)
Referrals:
CT Transitional Care Nurse [Outside] (The Cardiothoracic Transitional Care Nurse will call you to set up a visit in 1-2 days.)
[facility] [Outside] - 01/28/25 1:00 pm
(Cardiac Rehab Orientation appointment is on Tuesday01/28/25 at 1pm.
The Cardiac Rehab gym is located on the first floor of the [facility].)
Ciarra Goff CRNP [Specified Professional Personl] - 01/21/25 3:00 pm
Shelton Baugh MD [Family Provider] -
Prescriptions:
New
acetaminophen 325 mg Tablet
650 mg PO Q4HPRN PRN (Reason: [place], mild pain, or fever >101F) Qty: 0 0RF
Continued
allopurinol 300 MG tablet
300 mg PO DAILY
rosuvastatin [Crestor] 40 MG tablet
40 mg PO HS
cholecalciferol (vitamin D3) 1,000 UNITS tablet
2,000 units PO QPM
acyclovir 200 mg Capsule
200 mg PO TID PRN (Reason: cold sores)
aspirin 81 mg Capsule
81 mg PO DAILY
Glucosamine Chondroitin 550-30-1 mg Capsule
1 cap PO DAILY
finasteride 1 mg Tablet
1 mg PO DAILY
Held
[place] 3 Fish Oil
1 cap PO DAILY
Hold Instructions: Resume on 12/28/24.
Care Plan Goals
Care Plan Goals:
Problem: Readiness for enhanced knowledge related to diagnosis and treatment plan
Goal: Understand your diagnosis and treatment plan needs, including medications if applicable.
Instructions: Know your diagnosis, underlying causes and treatment plan options, including medications if applicable. Consult with your health care team to learn about your diagnosis and treatment plan, including medications if applicable.
Discharge Date and Time
Print Language: MALTESE
--- NOTE | 2024-12-21 12:26 | CM ---
Met w/ patient at bedside.
Pt. feels well and is prepared for DC today.
We reviewed visit from CT Transitional Care RN + outpatient MD appts.
No other identified DC needs.
Plan: HOME w/ CT RN
--- NOTE | 2024-12-21 15:08 | PTCARENOTE ---
Pt without complaints. Echo done . Pt seen By . Telemetry and IV device removed. DC instructions reviewed with pt and his regarding
activity and driving restrictions, wound care, medications, CHF guidelines, reporting cares and concerns and follow up appt's. Excellent understanding taught back to this RN. Pt escorted out via wheelchair and discharged to home.
== END 2024-12-21 14:45 | disposition home or self-care (01) | DRG 266 ==
LOC: IVU 06:15
PROVIDERS: Nurse Practitioner; ADMITTING PHYSICIAN Thoracic Surgery (Cardiothoracic Vascular Surgery); CONSULT PHYSICIAN Internal Medicine Cardiovascular Disease; FAMILY PHYSICIAN Family Medicine
PROC: 02RF38Z Replacement of Aortic Valve with Zooplastic Tissue, Percutaneous Approach (ICD-10-PCS; 2024-12-20)
DX: I35.2 Nonrheumatic aortic (valve) stenosis with insufficiency (principal); Z00.6 Encounter for examination for normal comparison and control in clinical research program; I50.43 Acute on chronic combined systolic (congestive) and diastolic (congestive) heart failure; I11.0 Hypertensive heart disease with heart failure; E78.5 Hyperlipidemia, unspecified; I25.10 Atherosclerotic heart disease of native coronary artery without angina pectoris; I36.1 Nonrheumatic tricuspid (valve) insufficiency; I49.3 Ventricular premature depolarization; I44.0 Atrioventricular block, first degree; Z79.82 Long term (current) use of aspirin; Z79.899 Other long term (current) drug therapy; Z82.49 Family history of ischemic heart disease and other diseases of the circulatory system; Z87.11 Personal history of peptic ulcer disease
CPT/HCPCS: 93308; 33361; 36415; 71045; 71046; 80048; 80053; 81003; 82248; 83036; 83880; 85025; 85027; 85347; 85610; 85730; 86850; 86900; 86901; 87070; 93005; 93321; 93325; C1760; C1769; C1894; Q9967

== ENCOUNTER → 2025-01-18 11:14 | Outpatient (REF) | payer MEDICARE, SELFPAY | LOC: RCS 11:14 | PROVIDERS: ATTENDING PHYSICIAN Internal Medicine Cardiovascular Disease; FAMILY PHYSICIAN Family Medicine | DX: Z95.2 Presence of prosthetic heart valve (principal); I07.1 Rheumatic tricuspid insufficiency; I10 Essential (primary) hypertension; I35.0 Nonrheumatic aortic (valve) stenosis; I35.1 Nonrheumatic aortic (valve) insufficiency; R42 Dizziness and giddiness; I47.10 Supraventricular tachycardia, unspecified; R06.02 Shortness of breath | CPT/HCPCS: 93306 ==

== ENCOUNTER 2025-02-20 14:15 | Outpatient (RCR) | payer MEDICARE, SELFPAY | END 2025-02-20 23:59 | disposition home or self-care (01) | LOC: CRHB 14:15 | PROVIDERS: ATTENDING PHYSICIAN Internal Medicine Cardiovascular Disease | DX: Z95.4 Presence of other heart-valve replacement (principal) | CPT/HCPCS: G0422; G0423 ==

== ENCOUNTER → 2025-03-08 16:22 | Outpatient (REF) | payer MEDICARE, SELFPAY ==
[2024-11-07 13:26] LABS: % Basophils 0.7 % (0-2); % Eosinophils 3.3 % (0-6); % Immature Granulocytes 0.4 % (0-0.5); % Lymphocytes 24.4 % (20.5-51.1); % Monocytes 6.1 % (1.7-9.3); % Neutrophils 65.1 % (42.2-75.2); Absolute Basophils 0.1 10^3/uL (0-0.2); Absolute Eosinophils 0.2 10^3/uL (0-0.7); Absolute Lymphocytes 1.8 10^3/uL (1.2-3.4); Absolute Monocytes 0.4 10^3/uL (0.1-0.6); Absolute Neutrophils 4.7 10^3/uL (1.4-6.5); Hematocrit 43.6 % (39.0-52.0); Hemoglobin 14.4 g/dL (13.0-18.0); Mean Corpuscular Hgb 30.2 pg (27.0-31.0); Mean Corpuscular Volume 91.4 fL (80.0-94.0); Nucleated Red Blood Cells % 0 % (-); Platelet Count 173 10^3/uL (130-400); Red Blood Cell Count 4.77 10^6/uL (4.70-6.10); White Blood Cell Count 7.3 10^3/uL (4.8-10.8)
[2024-11-07 14:15] LABS: ALT (SGPT) 26 U/L (0-50); AST (SGOT) 36 U/L (17-59); Albumin 4.9 g/dl (3.5-5.0); Alkaline Phosphatase 66 U/L (38-126); Blood Urea Nitrogen 18 mg/dl (9-20); Calcium 10.2 mg/dl (8.4-10.2); Carbon Dioxide 25 mmol/L (22-30); Chloride 103 mmol/L (98-107); Glucose 94 mg/dl (70-99); Potassium 4.7 mmol/L (3.5-5.1); Sodium 139 mmol/L (135-145); Total Bilirubin 0.8 mg/dl (0.2-1.3); Total Protein 7.4 g/dl (6.3-8.2); eGFR > 60.00
== END ==
LOC: REG 16:22
PROVIDERS: ATTENDING PHYSICIAN Internal Medicine Cardiovascular Disease; FAMILY PHYSICIAN Family Medicine
DX: I35.0 Nonrheumatic aortic (valve) stenosis (principal); I10 Essential (primary) hypertension; I35.1 Nonrheumatic aortic (valve) insufficiency; I47.10 Supraventricular tachycardia, unspecified
CPT/HCPCS: 36415; 80053; 85025; 93005

== ENCOUNTER 2025-03-22 14:29 | Outpatient (RCR) | payer MEDICARE, SELFPAY | END 2025-03-22 23:59 | disposition home or self-care (01) | LOC: CRHB 14:29 | PROVIDERS: ATTENDING PHYSICIAN Internal Medicine Cardiovascular Disease | DX: Z95.4 Presence of other heart-valve replacement (principal); I25.10 Atherosclerotic heart disease of native coronary artery without angina pectoris (principal) | CPT/HCPCS: G0422; G0423 ==

== ENCOUNTER 2025-04-22 14:29 | Outpatient (RCR) | payer MEDICARE, SELFPAY | END 2025-04-22 23:59 | disposition home or self-care (01) | LOC: CRHB 14:29 | PROVIDERS: ATTENDING PHYSICIAN Internal Medicine Cardiovascular Disease | DX: I25.10 Atherosclerotic heart disease of native coronary artery without angina pectoris (principal); Z95.4 Presence of other heart-valve replacement | CPT/HCPCS: G0422; G0423 ==

== ENCOUNTER 2025-05-15 14:07 | Outpatient (RCR) | payer MEDICARE, SELFPAY | END 2025-05-15 14:57 | disposition home or self-care (01) | LOC: CRHB 14:07 | PROVIDERS: ATTENDING PHYSICIAN Internal Medicine Cardiovascular Disease | DX: I25.10 Atherosclerotic heart disease of native coronary artery without angina pectoris (principal); Z95.3 Presence of xenogenic heart valve; E78.5 Hyperlipidemia, unspecified; I10 Essential (primary) hypertension; I36.1 Nonrheumatic tricuspid (valve) insufficiency; I35.1 Nonrheumatic aortic (valve) insufficiency | CPT/HCPCS: G0422; G0423 ==

== ENCOUNTER → 2025-08-06 07:45 | Outpatient (REF) | payer MEDICARE, SELFPAY ==
[2025-08-06 09:04] LABS: ALT (SGPT) 30 U/L (0-50); AST (SGOT) 34 U/L (17-59); Albumin 4.7 g/dl (3.5-5.0); Alkaline Phosphatase 58 U/L (38-126); Blood Urea Nitrogen 21 mg/dl (9-20); Calcium 9.7 mg/dl (8.4-10.2); Carbon Dioxide 26 mmol/L (22-30); Chloride 107 mmol/L (98-107); Glucose 94 mg/dl (70-99); HDL Cholesterol 82 mg/dl; LDL Cholesterol, Calculated 70 mg/dl; Potassium 4.7 mmol/L (3.5-5.1); Sodium 140 mmol/L (135-145); Total Protein 7.4 g/dl (6.3-8.2); Very Low Density Lipoprotein 12 mg/dl (0-30); eGFR > 60.00
[2025-08-06 09:05] LABS: Glycohemoglobin (HgbA1c) 5.6 % (4.0-5.6)
[2025-08-06 09:51] LABS: Uric Acid 5.6 mg/dl (3.5-8.5)
[2025-08-06 11:36] LABS: CRP, Ultra Sensitive < 0.30 mg/L (0.30-5.00)
== END ==
LOC: REG 07:45
PROVIDERS: ATTENDING PHYSICIAN Family Medicine
DX: E78.5 Hyperlipidemia, unspecified (principal); R73.03 Prediabetes; M10.9 Gout, unspecified
CPT/HCPCS: 36415; 80053; 80061; 83036; 84550; 86141

== ENCOUNTER → 2025-10-22 08:19 | Outpatient (REF) | payer MEDICARE, SELFPAY ==
[2025-10-22 08:57] LABS: Urine Character Clear (Clear)
[2025-10-22 09:03] LABS: Hematocrit 41.4 % (39.0-52.0); Hemoglobin 13.7 g/dL (13.0-18.0); Mean Corp Hgb Conc. 33.1 g/dL (33.0-37.0); Mean Corpuscular Volume 91.6 fL (80.0-94.0); Nucleated Red Blood Cells % 0 % (-); Platelet Count 148 10^3/uL (130-400); Red Cell Dist. Width 14.0 % (11.5-14.5)
[2025-10-22 09:22] LABS: ALT (SGPT) 23 U/L (0-50); AST (SGOT) 33 U/L (17-59); Albumin 4.4 g/dl (3.5-5.0); Alkaline Phosphatase 65 U/L (38-126); Blood Urea Nitrogen 21 mg/dl (9-20); Calcium 9.8 mg/dl (8.4-10.2); Carbon Dioxide 27 mmol/L (22-30); Chloride 107 mmol/L (98-107); Glucose 94 mg/dl (70-99); LDH 165 U/L (120-246); Potassium 5.1 mmol/L (3.5-5.1); Sodium 139 mmol/L (135-145); Total Protein 7.1 g/dl (6.3-8.2); eGFR > 60.00
[2025-10-22 09:49] LABS: TSH 1.99 uIU/ml (0.47-4.68)
[2025-10-24 20:38] LABS: Albumin 4.11 g/dL (3.75-5.01); SPEP IFE Reflex Not Done; Total Protein-Electrophoresis 6.7 g/dL (6.3-8.2)
[2025-10-24 21:08] LABS: 24 Hour Urine Total Volume Random mL; Urine Collection Length Random hr
== END ==
LOC: REG 08:19
PROVIDERS: ATTENDING PHYSICIAN Family Medicine
DX: R63.4 Abnormal weight loss (principal)
CPT/HCPCS: 36415; 80053; 81003; 81050; 83520; 83615; 84155; 84156; 84165; 84443; 85025; 86335